=== PATIENT | male | born 1995 | race Caucasian/White ===

== ENCOUNTER 2020-08-22 11:22 | Emergency (ER) | payer MEDICAID, SELFPAY ==
[2020-08-22 11:39] VITALS: BP 128/89; PULSE 92; RESP 15; TEMP 36.8; O2SAT 99; BMI 29.9
--- NOTE | 2020-08-22 11:39 | XRR_ITS ---
PROCEDURE INFORMATION: Exam: XR Left Ankle Exam date and time: 08/22/2020 11:39 AM Age: 24 years old Clinical indication: Injury or trauma; Fall; Blunt trauma; Ankle; Left; Additional info: XR ankle pain TECHNIQUE: Imaging protocol: XR Left ankle. Views: 1 or 2 views. COMPARISON: No relevant prior studies available. FINDINGS: Bones/joints: There is an oblique displaced fracture distal shaft of the tibia. There is a comminuted displaced oblique fracture of the distal shaft of the fibula. A longitudinal displaced fracture is seen in the posterior malleolus Soft tissues: There is mild widening of the medial clear space suspicious for deltoid ligament injury. Soft tissue edema is seen in the lateral and posterior aspect of the ankle XR/XR ankle LT 2V [id number] IMPRESSION: 1. Oblique displaced fracture distal shaft of the tibia 2. Comminuted displaced fracture of the distal shaft of the fibula 3. Avulsion fracture of the posterior malleolus of the tibia 4. Widening of the medial clear space rule out deltoid ligament injury. 5. Soft tissue edema lateral ankle
--- NOTE | 2020-08-22 11:57 | ED_ITS ---
HPI - Extremity Problem General: Chief complaint: Extremity Injury, Lower Stated complaint: LEFT ANKLE INJURY Time Seen by Provider: 08/22/20 11:39 History of Present Illness: HPI Narrative: The patient is a 24-year-old male who comes to the ER with left ankle injury. He was playing paint ball running down a hill stepped on a rock and rolled his left ankle. Complains of severe pain to the left ankle. Foot is slightly maroonish color with slightly reduced capillary refill at the toes. Difficult to palpate pulses as well. Pulses were dopplered but slightly weaker than the right foot which is uninjured. MD Complaint: extremity swelling and joint swelling Pain Consistency: constant Location: left Relieving factors: nothing Exacerbating factors: range of motion and palpation Associated symptoms: Reports no associated symptoms; Deny chest pain or rash Review of Systems General: Reports: 10 or more systems reviewed and unremarkable except in HPI and below Const: Denies: fatigue Eyes: Denies: change in vision, blurry vision or eye redness ENMT: Denies: throat pain, swelling of lips/tongue, ear or mastoid pain or nasal congestion Card: Denies: chest pain, palpitations, irregular heart rhythm, edema, dyspnea on exertion or orthopnea Resp: Denies: dyspnea, productive cough or non-productive cough GI: Denies: abdominal pain, diarrhea or GI cramping : Denies: flank pain, urinary frequency or urinary urgency Musc: Denies: neck pain, back pain, extremity pain, joint pain, joint redness, limited range of motion or muscle weakness Skin/Breast: Denies: rash, pruritus, erythema, skin pain or skin tenderness Neuro: Denies: headache(s), numbness in extremities, weakness in extremities, sensory changes, difficulty walking, dizziness, confusion or Slurred speech present Psych: Denies: anxiety or depression Endo: Denies: polyuria All/Imm: Denies: urticaria, throat swelling or tongue swelling Physical Exam Const: COMMON NORMALS: no acute distress, average body habitus, patient oriented x3, no limitations, healthy appearing, alert and well nourished GENERAL APPEARANCE: cooperative, comfortable, well kempt and well developed ORIENTATION/CONSCIOUSNESS: Yes awake, Yes oriented to person, Yes oriented to place and Yes oriented to time HENMT: COMMON NORMALS: normocephalic, external ears normal and Normal external nose present HEAD & SCALP: normal to inspection and normocephalic NOSE: Normal external nose present EXTERNAL EAR: Yes external ears normal MOUTH: Normal oral and palatal mucosa present THROAT: posterior oropharynx normal Eye: COMMON NORMALS: Equal, round and reactive pupils present and EOMs intact bilaterally GENERAL EYE: appearance normal, both eyes and all related structures PUPIL: Yes Equal, round and reactive pupils present Neck/C-Spine: COMMON NORMALS: full ROM, no lymphadenopathy, no meningeal signs and no JVD GENERAL: Yes normal visual inspection Lymph: LYMPHATIC: no lymphadenopathy noted Chest: COMMONS NORMALS: normal inspection of the chest and normal palpation of entire chest wall Resp: COMMON NORMALS: normal respiratory effort, No retractions, No use of accessory muscles, clear to auscultation bilaterally and percussion normal EFFORT & INSPECTION: Yes able to speak in complete sentences AUSCULTATION: clear to auscultation bilaterally PERCUSSION: percussion normal Cardio: COMMON NORMALS: no JVD, regular rate, regular rhythm, S1 normal heart sound present, S2 normal heart sound present and Peripheral pulses 2+ throughout RATE: regular rate RHYTHM: regular rhythm HEART SOUNDS: S1 normal heart sound present and S2 normal heart sound present PERIPHERAL PULSES: Peripheral pulses 2+ throughout GI: COMMON NORMALS: Normal to inspection, nondistended, normoactive bowel sounds present, Soft to palpation, non-tender and no masses INSPECTION: Yes normal to inspection PALPATION: Yes Soft to palpation : COMMON NORMALS: Yes no CVA tenderness BLADDER/KIDNEY EXAM: Yes no CVA tenderness Back/Pelvis: COMMON NORMALS: no CVA tenderness, thoracic and lumbar spine normal to inspection, no thoracic nor lumbar tenderness and thoraco-lumbar ROM normal Extremity: COMMON NORMALS: normal to inspection, full ROM, capillary refill normal, no joint enlargement and no pedal edema NARRATIVE EXTREMITY EXAM: Obvious fracture to left ankle. Left foot has difficult to palpate pulses. They were dopplered and slightly weaker than the right foot. Capillary refill reduced to 5 seconds in all toes. slightly less in th e skin of the foot. Foot has slightly darkish color compared to the right foot. GENERAL: Yes normal exam except as noted Neuro: COMMON NORMALS: patient oriented x3, CN's II-XII intact bilaterally, moves all extremities, no focal motor deficits, no sensory deficits noted and gait normal SENSORIUM/ORIENTATION: Yes alert, Yes oriented to person, Yes oriented to place and Yes oriented to time MENINGEAL SIGNS: Yes no meningeal signs Psych: COMMON NORMALS: mental status grossly normal, Normal thought process present, cooperative, normal affect and speech normal APPEARANCE: Yes well kempt ATTITUDE: Yes calm SPEECH: Yes normal speech THOUGHT PROCESS: Normal thought process present Skin: COMMON NORMALS: no rashes or lesions noted GENERAL SKIN EXAM: no rashes or lesions noted Course Vital Signs: Vital signs: Vital Signs Temperature 98.2 F 08/22/20 11:39 Pulse Rate 92 08/22/20 11:39 Respiratory Rate 15 08/22/20 11:39 Blood Pressure 128/89 08/22/20 11:39 Pulse Oximetry 99 08/22/20 11:39 MDM - Extremity (Nontraumatic) MDM Narrative: Medical decision making narrative: 1200: TIb/fib seen on XR. Waiting on Dr. Zuniga call back. 1209 Dr. zuniga recommends transfer 1211: [facility] refuses transfer. 1223: [facility] Dr. Lynn accepts transfer to ED. 1225: [facility] called for transfer. The patient comes to the ER with a distal tib-fib fracture with likely some compromise of his circulation though pulses are able to be dopplered and cap refill is 5 seconds in the toes. The fracture is closed. X-ray does not show significant displacement. Dr. Zuniga recommended transfer. Joan Lee refuses. Olivia accepts to the ED Dr. Lynn. Placing in lose splint and transfer yasmine. Lab Data: Labs: Lab Results 08/22/20 Range/Units 11:57 WBC 10.8 H (4.0-10.0) 10^3/ uL RBC 5.71 H (4.1-5.3) 10^6/u L Hgb 17.3 H (11.7-16.6) g/dL Hct 49.2 (42.0-52.0) % MCV 86.2 (80-94) fL MCH 30.3 (28.0-34.0) pg MCHC 35.2 (30.0-36.0) g/dL RDW 11.4 L (12.1-15.1) % Plt Count 253 (130-400) 10^3/c mm MPV 9.6 (7.4-10.4) fL Neut % (Auto) 77.2 % Lymph % (Auto) 14.5 % [place] % (Auto) 7.0 % Eos % (Auto) 0.6 % Baso % (Auto) 0.4 % Neut # (Auto) 8.37 H (1.8-7.7) 10^3/u L Lymph # (Auto) 1.6 (0.8-4.8) 10^3/u L [place] # (Auto) 0.8 (0.2-0.9) 10^3/u L Eos # (Auto) 0.1 (0.0-0.8) 10^3/u L Baso # (Auto) 0.0 (0.0-0.1) 10^3/u L Nucleated RBC % (a uto) 0 % Nucleated RBCs # 0.0 /100WBC Discharge Plan Discharge Patient Disposition: Xfer Short-Term Hosp Clinical Impression: Fracture of tibia and fibula Condition: Stable Coding Level of Care Code ED Dope Firer for [place] Fwd Exam Comprehensive
[2020-08-22] MEDS: sodium chloride 0.9% 1,000 ML 999 ML IV (11:58)
[2020-08-22] MEDS: morphine 4 mg/mL SDV 1 mL 2 MG IVP (11:58)
[2020-08-22 12:07] LABS: Basophils % 0.4 %; Eosinophils # 0.1 10^3/uL (0.0-0.8); Eosinophils % 0.6 %; Hematocrit 49.2 % (42.0-52.0); Hemoglobin 17.3 g/dL (11.7-16.6); Lymphocytes # 1.6 10^3/uL (0.8-4.8); Lymphocytes % 14.5 %; Mean Corpuscular HGB Conc 35.2 g/dL (30.0-36.0); Mean Corpuscular Hemoglobin 30.3 pg (28.0-34.0); Mean Corpuscular Volume 86.2 fL (80-94); Mean Platelet Volume 9.6 fL (7.4-10.4); Monocytes # 0.8 10^3/uL (0.2-0.9); Neutrophils # 8.37 10^3/uL (1.8-7.7); Neutrophils % 77.2 %; Nucleated Red Blood Cells % 0 %; Platelet Count 253 10^3/cmm (130-400); Red Blood Count 5.71 10^6/uL (4.1-5.3); Red Cell Distribution Width 11.4 % (12.1-15.1); White Blood Count 10.8 10^3/uL (4.0-10.0)
[2020-08-22 12:27] LABS: Alanine Aminotransferase 34 U/L (0-41); Alkaline Phosphatase 86 IU/L (40-130); Anion Gap 14.2 (5-19); Aspartate Amino Transferase 25 U/L (0-40); Blood Urea Nitrogen 12 mg/dL (6-20); Calcium 9.3 mg/dL (8.5-10.5); Carbon Dioxide 27 mmol/L (22-29); Chloride 100 mmol/L (98-107); Globulin 2.5 g/dL (1.3-4.6); Glomerular Filtration Rate 81.6 mL/min (90-130); Glucose 107 mg/dL (65-115); Osmolality Calculated 284 mOsm/kg (285-295); Potassium 4.2 mmol/L (3.5-5.1); Sodium 137 mmol/L (136-145); Total Bilirubin 0.4 mg/dL (0.15-1.2); Total Protein 7.5 g/dL (6.6-8.7)
[2020-08-22] MEDS: HYDROmorphone 1 mg/mL INJ 1 mL 0.5 MG IVP (12:41)
[2020-08-22 12:53] LABS: Lactate (Lactic Acid level) 1.9 mmol/L (0.5-2.2)
[2020-08-22 12:56] VITALS: BP 160/95; PULSE 96; RESP 17; O2SAT 100
== END 2020-08-22 12:53 | disposition short-term general hospital (02) ==
PROVIDERS: Emergency Provider Family Medicine
DX: S82.232A Displaced oblique fracture of shaft of left tibia, initial encounter for closed fracture (principal); S82.832A Other fracture of upper and lower end of left fibula, initial encounter for closed fracture; X50.1XXA Overexertion from prolonged static or awkward postures, initial encounter
CPT/HCPCS: 29515; 73600; 80053; 83605; 85025; 96361; 96374; 96375; 99285; J1170; J2270; J7030